=== PATIENT | female | born 1980 | race Caucasian/White ===

== ENCOUNTER 2016-06-02 16:51 | Outpatient (CLI) | payer MEDICAID ==
[2016-06-02 17:52] LABS: APPEARANCE,URINE SLIGHTLY-CLOUDY; BILIRUBIN,URINE NEGATIVE (NEGATIVE); GLUCOSE, URINE NEGATIVE (NEGATIVE); KETONES,URINE NEGATIVE (NEGATIVE); LEUKOCYTE ESTERASE,URINE NEGATIVE (NEGATIVE); NITRITE,URINE NEGATIVE (NEGATIVE); PROTEIN,URINE 30 mg/dL (NEGATIVE); URINE SPECIFIC GRAVITY 1.017
--- NOTE | 2016-06-02 17:53 | Non Stress Test Report ---
Non Stress Test Datetime Report Generated by CPN: 06/02/2016 17:53 DEMOGRAPHIC Test Number: 2 EGA NST: 36.5 INDICATION Indication for Study: Other Indication for Study (NST) Other: LC MONITORING Monitor Explained: Monitor Explained; Test Explained; Patient Verbalized Understanding Time on Monitor: 06/02/2016 17:13 Time off Monitor: 06/02/2016 17:45 NST Duration: 32 NST INTERVENTIONS NST Interventions: PO Hydration; Reposition Patient Physician Notified NST: Dr. Yan BABY A: [id number] BABY A Movement : Present Contraction Frequency : None FHR Baseline : 145 Accelerations : 15X15 Decelerations : None Variability : Moderate 6-25bpm NST Review: Meets Criteria for Reactive NST NST Review and Verified By : BOBBI Mak Results: Reactive NST REPORT Report Trigger: Send Report
[2016-06-02 18:07] LABS: URINE BARBITURATES SCREEN NEGATIVE; URINE METHADONE SCREEN NEGATIVE; URINE PHENCYCLIDINE SCREEN NEGATIVE
--- NOTE | 2016-06-03 04:46 | L&D Flow Sheet ---
LD Flowsheet Datetime Report Generated by CPN: 06/03/2016 04:45 Datetime: 06/02/2016 17:50 Communication Communication Comments: Pt ambulated off floor in stable condition (Aditi De Souza, RN) Datetime: 06/02/2016 17:45 Uterine Activity Monitor Mode: External; Palpation (Aditi De Souza, RN) Frequency (min): None (Aditi Ap, RN) Resting Tone (Palpate): Relaxed (Aditi De Souza, RN) Assessment A Monitor Mode: External US (Aditi De Souza, RN) FHR Baseline Rate : 145 (Aditi Ap, RN) Variability: Moderate 6-25 bpm (Aditi De Souza, RN) Accelerations: 15X15 (Aditisamira De Souza, RN) Decelerations: None (Aditi De Souza, RN) Communication Communication Comments: Monitors removed. D/C instructions given. Reviewed kick counts and labor signs. Pt has questions about rash on labia. Explained to use OTC creams and discuss with provider at next appt. (Aditi De Souza, RN) Datetime: 06/02/2016 17:31 Communication Communication Comments: Report given to Dr. Yan. D/C order received once NST is reactive. (Aditi De Souza, RN) Datetime: 06/02/2016 17:25 Vital Signs NBP Sys/Jaquelin/Mean (mmHg): 132 (QS system process) : 84 (QS system process) : 103 (QS system process) Pulse: 88 (QS system process) LaborFlag: Antepartum (QS system process) Datetime: 06/02/2016 17:15 Respirations: 16 (Aditi De Souza, RN) Temperature (F): 97.5 (Aditi De Souza RN) Temperature (C): 36.4 (QS system process) Pain Pain Scale: 2 (Aditi De Souza RN) Pain Presence: Intermittent (Aditi De Souza RN) Pain Type: Pressure; Ache (Aditi De Souza RN) Pain Location: Back (Aditi De Souza RN) Vaginal Exam Dilatation (cm): 0.5 (Aditi De Souza RN) Effacement (%): thick (Aditi De Souza, BOBBI) Station: high (Aditi De Souza, BOBBI) Exam by: Cole Shetty RN (Aditi De Souza RN) Vaginal Bleeding: None (Aditi De Souza RN) Maternal Assessment Level of Consciousness: Fully Conscious (Aditi De Souza RN) DTR's/Clonus: DTRs 2+; No Clonus (Aditi De Souza RN) Headache: Denies (Aditi De Souza RN) Breath Sounds, Left: Clear and Equal (Aditi De Souza, RN) Breath Sounds, Right: Clear and Equal (Aditi De Souza RN) Nausea/Vomiting: Present (Aditi De Souza RN) RUQ Epigastric Pain: Denies (Aditi De Souza RN) Teaching Instructional Method: Verbal; Patient Instructed; Family/Support Person Instructed; Verbalized Understanding (Aditi De Souza RN) Plan of Care: Plan of Care Discussed (Aditi De Souza RN) Unit Routine: [place] to Room; [place]; Bed; Handwashing; Monitoring; Bathroom Privileges (Aditi De Souza RN) LaborFlag: Antepartum (QS system process) Datetime: 06/02/2016 17:12 Patient Care Patient Position/Activity: Left Lateral (Aditi De Souza RN) I/O Interventions: Clear Liquids Given (Aditi De Souza RN)
--- NOTE | 2016-06-03 04:46 | L&D Current Admission ---
Current Admit Datetime Report Generated by CPN: 06/03/2016 04:45 ADMISSION INFORMATION Chief Complaint: Back Pain (06/02/2016 17:15:Aditi De Souza RN) Chief Complaint: Decreased Movement (05/10/2016 14:35:Ree Gonzalez RN)
--- NOTE | 2016-06-03 04:46 | L&D General Admission ---
General Admit Datetime Report Generated by CPN: 06/03/2016 04:45 INFORMATION Para: 2 (06/02/2016 17:52:Aditi De Souza RN) Para: 2 (05/10/2016 15:03:Ree Gonzalez RN) Baby, Number in Womb: 1 (06/02/2016 17:52:Aditi De Souza RN) Baby, Number in Womb: 1 (05/10/2016 15:03:Ree Gonzalez RN) CARE Height (in): 63 (06/02/2016 17:29:QS system process) Height (in): 63 (05/10/2016 14:50:QS system process) ALLERGIES Medication Allergies: Penicillins (06/02/2016); aspirin (06/02/2016) (06/02/2016 17:28:QS system process) Medication Allergies: Penicillins (05/10/2016); aspirin (05/10/2016) (05/10/2016 14:48:QS system process)
--- NOTE | 2016-06-03 04:46 | L&D Discharge Summary ---
OB Discharge Summary Datetime Report Generated by CPN: 06/03/2016 04:45 DISCHARGE DIAGNOSIS Diagnosis/Symptoms: Reassuring Surveillance - Annotate Details; False Labor Gestation: 36.5 Number of Babies in Womb: 1 Parity: 2 DIET/ACTIVITY/RESTRICTIONS Diet: Regular Activity: Normal Activity TEACHING/INSTRUCTIONS/REFERRALS Instructions Given To: Patient/FOB Instructions Understood: Patient Verbalized Understanding; Support Person Verbalized Understanding Referrals: None Educational Materials- Other: Kick Counts DISCHARGE INFORMATION Discharged AMA: No Discharge Date/Time: 06/02/2016 17:50 Discharged To: Home Discharge Provider Name: Dr. Yan Accompanied By: FOB Discharge Method: Ambulatory Condition: Stable FOLLOW UP INFORMATION Follow Up With: [facility] Follow Up On: As Scheduled Follow Up Phone Number: [facility] - Comments: reviewed kick count instructions, patient verbalized understanding GENERAL INSTR-CALL PROVIDER IF: Contractions: Contractions or cramps become more frequent than 8 in one hour or 4 in 20 minutes; Regular painful contractions every 5 minutes or less for one hour. Time your contractions from the beginning of one to the beginning of the next Pressure: Pressure in your vagina or lower abdomen that may feel like the baby is pushing down Period Like Cramps: Period-like cramps or low dull backache that may come and go Cramps/Diarrhea: Abdominal cramps that may be accompanied by diarrhea Gush of Fluid/Blood: Gush of fluid or blood from your vagina (it is normal to have spotting after vaginal exam or intercourse) Vaginal Discharge: Change in the type or amount of vaginal discharge Decreased Movement: Your baby is not moving as much as usual- 4 movements in 1 hour after drinking and resting on side Temperature: Temperature greater than 100.0(F) orally
--- NOTE | 2016-06-03 04:46 | L&D Admission Assessment ---
LD ADM ASMT Datetime Report Generated by CPN: 06/03/2016 04:45 PATIENT ASSESSMENT Assessment Type: Triage (06/02/2016 17:15:Aditisamira De Souza, RN) WEIGHT Weight (lb): 224 (06/02/2016 17:29:QS system process) Weight (kg): 101.8 (06/02/2016 17:29:QS system process) BMI: 39.7 (06/02/2016 17:29:QS system process) PAIN Pain Scale: 2 (06/02/2016 17:15:Aditi De Souza, RN) Pain Presence: Intermittent (06/02/2016 17:15:Aditi De Souza, RN) Pain Type: Pressure; Ache (06/02/2016 17:15:Aditi De Souza RN) Pain Location: Back (06/02/2016 17:15:Aditi De Souza, RN) CONTRACTIONS Frequency (min): None (06/02/2016 17:45:Aditi De Souza RN) Resting Tone [place]: Relaxed (06/02/2016 17:45:Aditi De Souza, RN) VAGINAL EXAM Dilatation (cm): 0.5 (06/02/2016 17:15:Aditi De Souza RN) Effacement (%): thick (06/02/2016 17:15:Aditi De Souza RN) Station: high (06/02/2016 17:15:Aditi De Souza RN) NEURO Level of Consciousness: Fully Conscious (06/02/2016 17:15:Aditi De Souza RN) DTR's/Clonus: DTRs 2+; No Clonus (06/02/2016 17:15:Aditi De Souza RN) Headache: Denies (06/02/2016 17:15:Aditi De Souza RN) Dizziness: No (06/02/2016 17:15:Aditi De Souza RN) Blurred Vision: No (06/02/2016 17:15:Aditi De Souza RN) Extremity Numbness/Tingling : None (06/02/2016 17:15:Aditi De Souza RN) Extremity Movement: Full Range of Motion (06/02/2016 17:15:Aditi De Souza RN) CARDIOVASCULAR Nailbeds: [place] (06/02/2016 17:15:Aditi De Souza RN) Capillary Refill: Less than 3 Seconds (06/02/2016 17:15:Aditi De Souza RN) Facial Edema: None (06/02/2016 17:15:Aditi De Souza RN) RESPIRATORY Respiratory Effort: Unlabored; Regular Rhythm; Equal Expansion (06/02/2016 17:15:Aditi De Souza RN) Breath Sounds, Left: Clear and Equal (06/02/2016 17:15:Aditi De Souza RN) Breath Sounds, Right: Clear and Equal (06/02/2016 17:15:Aditi De Souza RN) Cough Productivity: None (06/02/2016 17:15:Aditi De Souza RN) GASTROINTESTINAL Nausea/Vomiting: Present (06/02/2016 17:15:Aditi De Souza RN) Bowel Sounds: Normoactive; All Quadrants (06/02/2016 17:15:Aditi De Souza RN) RUQ Epigastric Pain: Denies (06/02/2016 17:15:Aditi De Souza RN) GENITOURINARY Bladder: Nondistended (06/02/2016 17:15:Aditi De Souza RN) Frequency of Urination: No (06/02/2016 17:15:Aditi De Souza RN) Urination Burning: No (06/02/2016 17:15:Aditi De Souza RN) CVA Tenderness: No (06/02/2016 17:15:Aditi De Souza RN) Vaginal Bleeding: None (06/02/2016 17:15:Aditi De Souza RN) Vaginal Discharge Color: N/A (06/02/2016 17:15:Aditi De Souza RN) INTEGUMENTARY Skin Color: Normal for Race (06/02/2016 17:15:Aditi De Souza RN) Skin Temperature: Warm (06/02/2016 17:15:Aditi De Souza RN) Skin Moisture: Dry (06/02/2016 17:15:Aditi De Souza RN) GABRIEL SKIN ASSESSMENT Gabriel Scale Sensory Perception: No Impairment- Responds to verbal commands. Has no sensory deficit which would limit ability to feel or voice pain or discomfort (06/02/2016 17:15:Aditi De Souza RN) Gabriel Scale Moisture: Rarely Moist- Skin is usually dry. Linen only requires changing at routine intervals (06/02/2016 17:15:Aditi De Souza RN) Gabriel Scale Activity: Walks Frequently- Walks outside the room at least twice a day and inside room at least every 2 hours during the day. (06/02/2016 17:15:Aditi De Souza RN) Gabriel Scale Mobility: No Limitations- Makes major and frequent changes in position without assistance (06/02/2016 17:15:Aditi De Souza RN) Gabriel Scale Nutrition: Excellent- Eats most of every meal. Never refuses a meal. Usually eats a total of 4 or more servings of meat and dairy products. Occasionally eats between meals. Does not require supplementation (06/02/2016 17:15:Aditi De Souza RN) Gabriel Scale Friction and Shear: No Apparent Problem- Moves in bed and in chair independently and has sufficient muscle strength to lift up completely during move. Maintains good position in bed or chair at all times (06/02/2016 17:15:Aditi De Souza RN) Gabriel Scale Total: 23 (06/02/2016 17:15:QS system process) Gabriel Scale Risk: No Risk of Pressure Ulcer Noted at this Time (06/02/2016 17:15:QS system process) SUPPORT Family Support: Significant Other supportive, at bedside frequently (06/02/2016 17:15:Aditi De Souza RN) Emotional State: Calm/Relaxed (06/02/2016 17:15:Aditi De Souza RN) SAFETY [place] Within Reach: Yes (06/02/2016 17:15:Aditi De Souza RN) Side Rails Up: Yes (06/02/2016 17:15:Aditi De Souza RN) Bed Wheels Locked: Yes (06/02/2016 17:15:Aditi De Souza RN) Arm Bands Present: Yes (06/02/2016 17:15:Aditi De Souza RN) FALL SCREEN Fall Risk History of Falling: (0) No (06/02/2016 17:15:Aditi De Souza RN) Fall Risk Secondary Diagnosis: (0) No (06/02/2016 17:15:Aditi De Souza RN) Fall Risk Ambulatory Aid: (0) None/Bedrest/Wheelchair/Nurse Assist (06/02/2016 17:15:Aditi De Souza RN) Fall Risk IV Therapy: (0) No (06/02/2016 17:15:Aditi De Souza RN) Fall Risk Gait: (0) Normal/Bedrest/Immobile (06/02/2016 17:15:Aditi De Souza RN) Fall Risk Mental Status: (0) Oriented to Own Ability (06/02/2016 17:15:Aditi De Souza RN) Fall Risk Score: 0 (06/02/2016 17:15:QS system process) Fall Risk Score Definition: No Risk: No action required (06/02/2016 17:15:QS system process) BABY A FHR Baseline Rate (bpm) Baby A: 145 (06/02/2016 17:45:Aditi De Souza RN) Variability Baby A: Moderate 6-25 bpm (06/02/2016 17:45:Aditi De Souza RN) Accelerations Baby A: 15X15 (06/02/2016 17:45:Aditi De Souza RN) Decelerations Baby A: None (06/02/2016 17:45:Aditi De Souza RN)
--- NOTE | 2016-06-03 04:46 | Antepartum Discharge Summary ---
Antepartum DC Datetime Report Generated by CPN: 06/03/2016 04:45 DIET/ACTIVITY/RESTRICTIONS Diet: Regular (06/02/2016 17:52:Aditi De Souza RN) Activity: Normal Activity (06/02/2016 17:52:Aditi De Souza RN) TEACHING/INSTRUCTIONS/REFERRALS Instructions Given To: Patient/FOB (06/02/2016 17:52:Aditi De Souza RN) Instructions Understood: Patient Verbalized Understanding; Support Person Verbalized Understanding (06/02/2016 17:52:Aditi De Souza RN) Referrals: None (06/02/2016 17:52:Aditi De Souza RN) Educational Materials- Other: Kick Counts (06/02/2016 17:52:Aditi De Souza RN) DISCHARGE INFORMATION Discharged AMA: No (06/02/2016 17:52:Aditi De Souza RN) Discharge Date/Time: 06/02/2016 17:50 (06/02/2016 17:52:Aditi De Souza RN) Discharged To: Home (06/02/2016 17:52:Aditi De Souza RN) Discharge Provider Name: Dr. Yan (06/02/2016 17:52:Aditi De Souza RN) Accompanied By: FOB (06/02/2016 17:52:Aditi De Souza RN) Discharge Method: Ambulatory (06/02/2016 17:52:Aditi De Souza RN) Condition: Stable (06/02/2016 17:52:Aditi De Souza RN) FOLLOW UP INFORMATION Follow Up With: [facility] (06/02/2016 17:52:Aditi De Souza RN) Follow Up On: As Scheduled (06/02/2016 17:52:Aditi De Souza RN) Follow Up Phone Number: [facility] - (06/02/2016 17:52:Aditi De Souza RN)
== END 2016-06-02 17:50 | disposition home or self-care (01) ==
LOC: LC 16:51
PROVIDERS: ATTEND Obstetrics & Gynecology
PROC: 4A1HXCZ Monitoring of Products of Conception, Cardiac Rate, External Approach (ICD-10-PCS; principal; 2016-06-02)
DX: Z34.93 Encounter for supervision of normal pregnancy, unspecified, third trimester (principal); Z3A.35 35 weeks gestation of pregnancy
CPT/HCPCS: 59025; 80307; 81001

== ENCOUNTER 2016-06-12 18:41 | Emergency (ER) | payer MEDICAID ==
--- NOTE | 2016-06-12 18:51 | ER Document Report ---
ED Medical Screen (RME) - General Chief Complaint: Rash Stated Complaint: POSSIBLE RASH Notes: 38 weeks rash and itching in the web spaces of bilateral hands with mild swelling that started today I have greeted and performed a rapid initial assessment of this patient. A comprehensive ED assessment and evaluation of the patient, analysis of test results and completion of the medical decision making process will be conducted by additional ED providers. TRAVEL OUTSIDE OF THE [place] IN LAST 30 DAYS: No - Related Data Allergies/Adverse Reactions: aspirin Allergy (Verified 06/12/16 18:49) Penicillins Allergy (Verified 06/12/16 18:49) Past Medical History Pulmonary Medical History: Reports: Hx Asthma Past Surgical History: Reports: Hx Gynecologic Surgery - Dnc, Hx Oral Surgery - wisdom - Immunizations Hx Diphtheria, Pertussis, Tetanus Vaccination: Yes
--- NOTE | 2016-06-12 20:29 | ER Document Report ---
ED General - General Chief Complaint: Rash Stated Complaint: POSSIBLE RASH Mode of Arrival: Ambulatory Information source: Patient Notes: 35-year-old female who is 30 weeks presents with complaints of rash between the fingers that started yesterday. Pt notes she has had bilateral hand swelling for 2 month duration. pt admits to itching , denies any fevers or chills nausea or vomitng TRAVEL OUTSIDE OF THE [place] IN LAST 30 DAYS: No - HPI Onset: This morning Onset/Duration: Sudden Quality of pain: No pain Severity: Mild Pain Level: Denies Associated symptoms: None Exacerbated by: Denies Relieved by: Denies Similar symptoms previously: No Recently seen / treated by doctor: No - Related Data Allergies/Adverse Reactions: aspirin Allergy (Verified 06/12/16 18:49) Penicillins Allergy (Verified 06/12/16 18:49) Past Medical History - Social History Smoking Status: Never Smoker Cigarette use (# per day): No Chew tobacco use (# tins/day): No Smoking Education Provided: No Frequency of alcohol use: None Drug Abuse: None Family History: Reviewed & Not Pertinent Patient has suicidal ideation: No Patient has homicidal ideation: No Pulmonary Medical History: Reports: Hx Asthma Renal/ Medical History: Denies: Hx Peritoneal Dialysis Past Surgical History: Reports: Hx Gynecologic Surgery - Dnc, Hx Oral Surgery - wisdom - Immunizations Hx Diphtheria, Pertussis, Tetanus Vaccination: Yes Review of Systems - Review of Systems Notes: REVIEW OF SYSTEMS: CONSTITUTIONAL : Denies fever, chills, or sweats. Denies recent illness. EENT: Denies eye, ear, throat, or mouth pain or symptoms. Denies nasal or sinus congestion or discharge. Denies throat, tongue, or mouth swelling or difficulty swallowing. CARDIOVASCULAR: Denies chest pain. Denies palpitations or racing or irregular heart beat. Denies ankle edema. RESPIRATORY: Denies cough, cold, or chest congestion. Denies shortness of breath, difficulty breathing, or wheezing. GASTROINTESTINAL: Denies abdominal pain or distention. Denies nausea, vomiting , or diarrhea. Denies blood in vomitus, stools, or per rectum. Denies black, tarry stools. Denies constipation. GENITOURINARY: Denies difficulty urinating, painful urination, burning, frequency, blood in urine, or discharge. FEMALE GENITOURINARY: Denies vaginal bleeding, heavy or abnormal periods, irregular periods. Denies vaginal discharge or odor. MUSCULOSKELETAL: Denies back or neck pain or stiffness. admits ot bilateral hand swelling SKIN: admits ot rash between the fingers HEMATOLOGIC : Denies easy bruising or bleeding. LYMPHATIC: Denies swollen, enlarged glands. NEUROLOGICAL: Denies confusion or altered mental status. Denies passing out or loss of consciousness. Denies dizziness or lightheadedness. Denies headache. Denies weakness or paralysis or loss of use of either side. Denies problems with gait or speech. Denies sensory loss, numbness, or tingling. Denies seizures. PSYCHIATRIC: Denies anxiety or stress. Denies depression, suicidal ideation, or homicidal ideation. ALL OTHER SYSTEMS REVIEWED AND NEGATIVE. Dictation was performed using [email or web address] voice recognition software PHYSICAL EXAMINATION: GENERAL: Well-appearing, well-nourished and in no acute distress. HEAD: Atraumatic, normocephalic. EYES: Pupils equal round extraocular movements intact, conjunctiva are normal. ENT: Nares patent NECK: Normal range of motion LUNGS: No respiratory distress Musculoskeletal: Normal range of motion, gravid abdomen NEUROLOGICAL: Normal speech, normal gait. PSYCH: Normal mood, normal affect. SKIN: scally rash between digits on both hands without any obvious burrowing. Physical Exam - Vital signs Vitals: Temp Pulse Resp BP Pulse Ox 97.4 F 100 16 149/83 H 94 06/12/16 18:49 06/12/16 18:49 06/12/16 18:49 06/12/16 18:49 06/12/16 18:49 Course - Re-evaluation Re-evalutation: 06/12/16 21:03 Physical examination notes no signs of scabies, patient will be treated for rash , I prefer not to treat the patient with oral steroids and will use topical given that it is in a limited area After performing a Medical Screening Examination, I estimate there is LOW risk for any life threatening rash. At this time the patient looks extremely well and there are no signs of systemic infection, however this may change at any time and the rash may change. The patient and I have discussed the diagnosis and risks, and we agree with discharging home with close follow-up with the understanding that symptoms and presentations can change. We also discussed returning to the Emergency Department immediately if new or worsening symptoms occur. We have discussed the symptoms which are most concerning (e.g., changing or worsening pain, fever, numbness, weakness, cool or painful digits) that necessitate immediate return. - Vital Signs Vital signs: Temp Pulse Resp BP Pulse Ox 97.4 F 100 16 149/83 H 94 06/12/16 18:49 06/12/16 18:49 06/12/16 18:49 06/12/16 18:49 06/12/16 18:49 Discharge - Discharge Clinical Impression: Rash and nonspecific skin eruption Condition: Stable Disposition: HOME, SELF-CARE Instructions: Rash of ([facility]) Additional Instructions: Follow up with your physician tomorrow for further care or return to the ED IMMEDIATELY if symptoms worsen or new concerns occur Prescriptions: Betamethasone/Propylene Glyc [Betamethasone Dp Aug 0.05% Crm] 50 gm TP BID 10 Days
[2016-06-12 21:08] VITALS: BP 128/88
== END 2016-06-12 20:32 | disposition home or self-care (01) ==
LOC: ER 18:41
DX: O26.93 Pregnancy related conditions, unspecified, third trimester (principal); R21 Rash and other nonspecific skin eruption; Z3A.30 30 weeks gestation of pregnancy; Z88.6 Allergy status to analgesic agent; Z88.0 Allergy status to penicillin
CPT/HCPCS: 99282

== ENCOUNTER 2017-07-25 15:42 | Emergency (ER) | payer SELFPAY ==
--- NOTE | 2017-07-25 17:43 | ER Document Report ---
ED General - General Chief Complaint: Chest Wall Pain Stated Complaint: DIFFICULTY BREATHING Time Seen by Provider: 07/25/17 16:44 Notes: Patient is a 36-year-old obese female complaining of left sided chest pain only with sneezing and taking a deep breath. She has been experiencing this pain for the past month intermittently. Patient denies cough or shortness of breath , any recent illness, fever, recent travel, recent surgery. Patient is a non- smoker. Patient has a history of preeclampsia, childhood asthma, PCOS. Patient has no previous cardiac history but has a strong cardiac family history TRAVEL OUTSIDE OF THE [place] IN LAST 30 DAYS: No - HPI Onset/Duration: Intermittent Quality of pain: Sharp Associated symptoms: Chest pain Exacerbated by: Deep breathing, Other - sneezing Relieved by: Denies - Related Data Allergies/Adverse Reactions: aspirin Allergy (Verified 07/25/17 16:01) Penicillins Allergy (Verified 07/25/17 16:01) Past Medical History - General Information source: Patient - Social History Smoking Status: Never Smoker Frequency of alcohol use: None Drug Abuse: None Lives with: Family Family History: Reviewed & Not Pertinent - Medical History Medical History: Other - Polycystic ovarian syndrome Pulmonary Medical History: Reports: Hx Asthma Renal/ Medical History: Denies: Hx Peritoneal Dialysis Past Surgical History: Reports: Hx Gynecologic Surgery - Dnc, Hx Oral Surgery - wisdom - Immunizations Hx Diphtheria, Pertussis, Tetanus Vaccination: Yes Review of Systems - Review of Systems Constitutional: No symptoms reported EENT: No symptoms reported Cardiovascular: No symptoms reported Respiratory: No symptoms reported Gastrointestinal: No symptoms reported Genitourinary: No symptoms reported Female Genitourinary: No symptoms reported Musculoskeletal: No symptoms reported Skin: No symptoms reported Hematologic/Lymphatic: No symptoms reported Neurological/Psychological: No symptoms reported Physical Exam - Vital signs Vitals: Temp Pulse Resp BP Pulse Ox 98.2 F 92 16 120/82 100 07/25/17 16:07 07/25/17 16:07 07/25/17 16:07 07/25/17 16:07 07/25/17 16:07 Interpretation: Normal - General General appearance: Appears well, Alert - HEENT Head: Normocephalic, Atraumatic Eyes: Normal Pupils: PERRL - Respiratory Respiratory status: No respiratory distress Chest status: Nontender Breath sounds: Normal Chest palpation: Normal - Cardiovascular Rhythm: Regular Heart sounds: Normal auscultation Murmur: No - Abdominal Inspection: Normal Distension: No distension Bowel sounds: Normal Tenderness: Nontender Organomegaly: No organomegaly - Back Back: Normal, Nontender - Extremities General upper extremity: Normal inspection, Nontender, Normal color, Normal ROM , Normal temperature General lower extremity: Normal inspection, Nontender, Normal color, Normal ROM , Normal temperature, Normal weight bearing. No: Brittany's sign - Neurological Neuro grossly intact: Yes Cognition: Normal Orientation: AAOx4 [place] Scale Eye Opening: Spontaneous [place] Scale Verbal: Oriented [place] Motor: Obeys Commands [place] Scale Total: 15 Speech: Normal Motor strength normal: LUE, RUE, LLE, RLE Sensory: Normal - Psychological Associated symptoms: Normal affect, Normal mood - Skin Skin Temperature: Warm Skin Moisture: Dry Skin Color: Normal Course - Re-evaluation Re-evalutation: 07/25/17 17:47 After performing a Medical Screening Examination, I estimate there is LOW risk for RUPTURED ESOPHAGUS, PNEUMOTHORAX, PULMONARY EMBOLISM, ACUTE CORONARY SYNDROME, OR THORACIC AORTIC DISSECTION, thus I consider the discharge disposition reasonable. I have reevaluated this patient multiple times and no significant life threatening changes are noted. The patient and I have discussed the diagnosis and risks, and we agree with discharging home with close follow-up. We also discussed returning to the Emergency Department immediately if new or worsening symptoms occur. We have discussed the symptoms which are most concerning (e.g., bloody sputum, worsening pain or shortness of breath) that necessitate immediate return. 07/25/17 19:02 Labs and chest x-ray are unremarkable. EKG showing normal sinus rhythm no ectopy. All results reviewed with patient - Vital Signs Vital signs: Temp Pulse Resp BP Pulse Ox 98.2 F 92 16 120/82 100 07/25/17 16:07 07/25/17 16:07 07/25/17 16:07 07/25/17 16:07 07/25/17 16:07 - Laboratory Result Diagrams: 07/25/17 17:49 07/25/17 17:49 Discharge - Discharge Clinical Impression: Chest wall pain Condition: Stable Disposition: HOME, SELF-CARE Instructions: Anti-Inflammatory Medication ([facility]), Chest Wall Pain ([facility]), Muscle Relaxers ([facility]) Additional Instructions: Your labs, chest x-ray and EKG were normal today Your chest discomfort is most likely musculoskeletal in nature and not cardiac Take anti-inflammatory medication and muscle relaxant as prescribed Follow-up with your primary care for further evaluation if pain persists Return to emergency department for any worsening of status Prescriptions: Ibuprofen [Motrin 800 Mg Tablet] 800 mg PO Q6H #20 tablet Methocarbamol [Robaxin 500 Mg Tablet] 1,000 mg PO Q6 #30 tablet
--- NOTE | 2017-07-25 18:24 | RADIOLOGY REPORT (SQ) ---
EXAM DESCRIPTION: CHEST PA/LAT COMPLETED DATE/TIME: 07/25/2017 6:18 pm REASON FOR STUDY: chest pain COMPARISON: 09/02/2009. EXAM PARAMETERS: NUMBER OF VIEWS: two views TECHNIQUE: Digital Frontal and Lateral radiographic views of the chest acquired. RADIATION DOSE: NA LIMITATIONS: none FINDINGS: LUNGS AND PLEURA: No opacities, masses or pneumothorax. No pleural effusion. MEDIASTINUM AND HILAR STRUCTURES: No masses or contour abnormalities. HEART AND VASCULAR STRUCTURES: Heart normal size. No evidence for failure. BONES: No acute findings. HARDWARE: None in the chest. OTHER: No other significant finding. IMPRESSION: NO SIGNIFICANT RADIOGRAPHIC FINDING IN THE CHEST. TECHNICAL DOCUMENTATION: JOB ID: [id number]- All Rights Reserved Reading location - IP/workstation name: [email or web address]
[2017-07-25 18:27] LABS: ABSOLUTE EOSINOPHILS # (AUTO) 0.1 10^3/uL (0.0-0.6); ABSOLUTE LYMPHOCYTES (AUTO) 2.6 10^3/uL (0.5-4.7); ABSOLUTE MONOCYTES (AUTO) 0.8 10^3/uL (0.1-1.4); ABSOLUTE NEUT (AUTO) 3.7 10^3/uL (1.7-8.2); BASOPHILS % (AUTO) 0.4 % (0-2); EOSINOPHILS % (AUTO) 1.8 % (0-6); HEMATOCRIT 37.8 % (36.0-47.0); HEMOGLOBIN 12.8 g/dL (12.0-15.5); LYMPHOCYTES % (AUTO) 36.1 % (13-45); MEAN CORPUSCULAR HEMOGLOBIN 29.2 pg (27.0-33.4); MEAN CORPUSCULAR HGB CONC 33.9 g/dL (32.0-36.0); MEAN CORPUSCULAR VOLUME 86 fl (80-97); MONOCYTES % (AUTO) 10.8 % (3-13); PLATELET COUNT 264 10^3/uL (150-450); RED CELL DISTRIBUTION WIDTH 13.1 % (11.5-14.0); SEGMENTED NEUTROPHILS % (AUTO) 50.9 % (42-78); TOTAL CELLS COUNTED % (AUTO) 100 %; WHITE BLOOD COUNT 7.3 10^3/uL (4.0-10.5)
--- NOTE | 2017-07-25 18:42 | EKG REPORT ---
SEVERITY:- BORDERLINE ECG - SINUS RHYTHM BORDERLINE T ABNORMALITIES, INFERIOR LEADS : Confirmed by: Kashif Kuhn MD 25-Jul-2017 18:42:05
[2017-07-25 18:43] LABS: ALANINE AMINOTRANSFERASE 36 U/L (9-52); ALBUMIN 4.3 g/dL (3.5-5.0); ALKALINE PHOSPHATASE 82 U/L (38-126); ANION GAP 10 (5-19); ASPARTATE AMINO TRANSFERASE 21 U/L (14-36); BILIRUBIN,DIRECT 0.3 mg/dL (0.0-0.4); BILIRUBIN,TOTAL 0.3 mg/dL (0.2-1.3); BLOOD UREA NITROGEN 10 mg/dL (7-20); CALCIUM 9.8 mg/dL (8.4-10.2); CARBON DIOXIDE 27 mmol/L (22-30); CHLORIDE 104 mmol/L (98-107); CREATINE KINASE 73 U/L (30-135); GLUCOSE 82 mg/dL (75-110); POTASSIUM 4.1 mmol/L (3.6-5.0); SODIUM 141.1 mmol/L (137-145); TOTAL PROTEIN 7.4 g/dL (6.3-8.2)
[2017-07-25 18:54] LABS: CREATINE KINASE MB 0.31 ng/mL (<4.55); TROPONIN I < 0.012 ng/mL
[2017-07-25 19:25] VITALS: BP 140/83
== END 2017-07-25 19:20 | disposition home or self-care (01) ==
LOC: ER 15:42
DX: R07.89 Other chest pain (principal); R06.02 Shortness of breath; R06.7 Sneezing
CPT/HCPCS: 36415; 71046; 80053; 82550; 82553; 84484; 84703; 85025; 93005; 93010; 99285

== ENCOUNTER 2018-08-02 17:40 | Outpatient (CLI) | payer MEDICAID ==
[2018-08-02 20:37] LABS: APPEARANCE,URINE CLEAR; BILIRUBIN,URINE NEGATIVE (NEGATIVE); COLOR,URINE STRAW; GLUCOSE, URINE NEGATIVE (NEGATIVE); KETONES,URINE NEGATIVE (NEGATIVE); LEUKOCYTE ESTERASE,URINE NEGATIVE (NEGATIVE); NITRITE,URINE NEGATIVE (NEGATIVE); PROTEIN,URINE NEGATIVE (NEGATIVE); URINE SPECIFIC GRAVITY 1.008; UROBILINOGEN,URINE NEGATIVE mg/dL (<2.0)
[2018-08-02 21:00] LABS: URINE AMPHETAMINES SCREEN NEGATIVE; URINE BARBITURATES SCREEN NEGATIVE; URINE BENZODIAZEPINES SCREEN NEGATIVE; URINE COCAINE SCREEN NEGATIVE; URINE MARIJUANA (THC) SCREEN NEGATIVE; URINE METHADONE SCREEN NEGATIVE; URINE PHENCYCLIDINE SCREEN NEGATIVE
[2018-08-02 22:00] LABS: ABSOLUTE EOSINOPHILS # (AUTO) 0.1 10^3/uL (0.0-0.6); ABSOLUTE LYMPHOCYTES (AUTO) 2.2 10^3/uL (0.5-4.7); ABSOLUTE MONOCYTES (AUTO) 0.9 10^3/uL (0.1-1.4); ABSOLUTE NEUT (AUTO) 6.2 10^3/uL (1.7-8.2); BASOPHILS % (AUTO) 0.2 % (0-2); EOSINOPHILS % (AUTO) 0.7 % (0-6); HEMATOCRIT 30.6 % (36.0-47.0); HEMOGLOBIN 10.1 g/dL (12.0-15.5); LYMPHOCYTES % (AUTO) 23.3 % (13-45); MEAN CORPUSCULAR HEMOGLOBIN 26.9 pg (27.0-33.4); MEAN CORPUSCULAR HGB CONC 33.1 g/dL (32.0-36.0); MEAN CORPUSCULAR VOLUME 81 fl (80-97); MONOCYTES % (AUTO) 9.7 % (3-13); PLATELET COUNT 192 10^3/uL (150-450); RED BLOOD COUNT 3.77 10^6/uL (3.72-5.28); RED CELL DISTRIBUTION WIDTH 14.4 % (11.5-14.0); SEGMENTED NEUTROPHILS % (AUTO) 66.1 % (42-78); TOTAL CELLS COUNTED % (AUTO) 100 %; WHITE BLOOD COUNT 9.3 10^3/uL (4.0-10.5)
[2018-08-02 22:10] LABS: ALANINE AMINOTRANSFERASE 18 U/L (9-52); ALBUMIN 3.1 g/dL (3.5-5.0); ALKALINE PHOSPHATASE 153 U/L (38-126); ANION GAP 10 (5-19); ASPARTATE AMINO TRANSFERASE 13 U/L (14-36); BILIRUBIN,DIRECT 0.2 mg/dL (0.0-0.4); BILIRUBIN,TOTAL 0.3 mg/dL (0.2-1.3); BLOOD UREA NITROGEN 8 mg/dL (7-20); CALCIUM 9.2 mg/dL (8.4-10.2); CARBON DIOXIDE 20 mmol/L (22-30); CHLORIDE 103 mmol/L (98-107); GLUCOSE 83 mg/dL (75-110); SODIUM 133.2 mmol/L (137-145); TOTAL PROTEIN 5.6 g/dL (6.3-8.2); URIC ACID 3.8 mg/dL (2.5-7.0)
--- NOTE | 2018-08-02 23:47 | Non Stress Test Report ---
Non Stress Test Datetime Report Generated by CPN: 08/02/2018 23:46 DEMOGRAPHIC Test Number: 1 EGA NST: 34.2 INDICATION Indication for Study: Ordered by Provider VITAL SIGNS Pulse - NST: 90 RESP - NST: 18 NBPSYS NST: 146 NBPDIA NST: 76 URINE RESULTS Urine Protein, NST: Negative Urine Ketones - NST: Negative Urine Glucose - NST: Negative Urine Blood - NST: Negative MONITORING Monitor Explained: Monitor Explained; Test Explained; Patient Verbalized Understanding Time on Monitor: 08/02/2018 20:00 Time off Monitor: 08/02/2018 21:35 NST Duration: 95 NST INTERVENTIONS NST Interventions: PO Hydration; Reposition Patient Physician Notified NST: Dr. Fuad BABY A: [id number] BABY A Movement : Present Contraction Frequency : occ with ui FHR Baseline : 140 Accelerations : 15X15 Decelerations : None Variability : Moderate 6-25bpm NST Review: Meets Criteria for Reactive NST NST Review and Verified By : Kelvin Cortezco, RN NST Results: Reactive NST REPORT Report Trigger: Send Report
== END 2018-08-02 23:11 | disposition home or self-care (01) ==
LOC: LC 17:40
PROVIDERS: ATTEND Obstetrics & Gynecology
PROC: 4A1HXCZ Monitoring of Products of Conception, Cardiac Rate, External Approach (ICD-10-PCS; principal; 2018-08-02)
DX: O47.03 False labor before 37 completed weeks of gestation, third trimester (principal); O09.523 Supervision of elderly multigravida, third trimester; Z3A.34 34 weeks gestation of pregnancy
CPT/HCPCS: 36415; 59025; 80053; 80307; 81001; 83615; 84550; 85025